=== PATIENT | female | born 1980 | race Two or more races ===

== ENCOUNTER 2023-05-06 22:44 | Emergency (ER) | payer OTHER ==
[~2023-05-06] VITALS: Ht 157.5 cm; Wt 53.5 kg
[2023-05-06 23:47] VITALS: BP 119/73; TEMP 98.7
[2023-05-06] MEDS ORDERED: DIPH-530 PO (23:53)
[2023-05-06] MEDS ORDERED: PRED20TA PO (23:53)
[2023-05-06] MEDS ORDERED: FAMO40TA7 PO (23:53)
[2023-05-07] VITALS: O2SAT 99
== END 2023-05-07 00:06 | disposition home or self-care (01) ==
LOC: ER 22:48
DX: L50.9 Urticaria, unspecified (principal)